=== PATIENT | female | born 1990 | race African-American/Black ===

== ENCOUNTER 2020-09-13 12:28 | Outpatient (CLI) | payer OTHER ==
[~2020-09-13] VITALS: Ht 170.2 cm; Wt 76.7 kg
[~2020-09-13 12:28] MED LIST: GLUCOPHAGE; LANTUS100 U/ML SQ; NEURONTIN300 MG/CAP PO; NOVOLOG 100U100 U/ML SQ; PERCOCET 5/321 UDTAB PO
[2020-09-13 12:59] VITALS: BP 112/82; PULSE 93
[2020-09-13 14:00] VITALS: BP 114/80; PULSE 89
--- NOTE | 2020-09-13 14:00 | NUR ---
Pt returned from procedure,report from RONEY Patel.
[2020-09-13 14:03] VITALS: BP 114/80; PULSE 90
[2020-09-13 14:15] VITALS: BP 115/65; PULSE 93
[2020-09-13 14:30] VITALS: BP 115/84; PULSE 93
[2020-09-13 14:54] VITALS: BP 121/83; PULSE 93
--- NOTE | 2020-09-13 15:10 | NUR ---
Discharge instructions given to pt.Pt verbalizes understanding.Pt escorted out by this nurse.
== END 2020-09-13 15:12 | disposition home or self-care (01) ==
LOC: COL.RAD 12:28
DX: Z45.42 Encounter for adjustment and management of neurostimulator (principal); M54.5 Low back pain
CPT/HCPCS: Q9965

== ENCOUNTER 2023-02-08 08:28 | Inpatient (IN) | payer MEDICAID ==
[2023-02-08] VITALS (24 sets, daily range): BP systolic 121–143; BP diastolic 80–96; PULSE 89–114; TEMP 98.1–98.5
[~2023-02-08] VITALS: Ht 172.8 cm; Wt 90.0 kg
--- NOTE | 2023-02-08 09:03 | NUR ---
0812 PATIENT HERE FROM HOME WITH COMPLAINTS OF HAVING A LARGE GUSH OF FLUID AT 0630 THIS AM. PATIENT PRESENTS WITH LARGE TOWEL BETWEEN HER LEGS. ASSISTED PATIETN TO BED AND LARGE AMOUNT OF CLEAR FLUID NOTED AT THIS TIME. PATIENT ALSO HAS A NEUROSTIMULATOR PLACED ON HER RIGHT HIP.
[2023-02-08] MEDS ORDERED: NATURAL IRON65 MG (09:08)
[2023-02-08] MEDS ORDERED: PRENATAL TABLET PO (09:09)
--- NOTE | 2023-02-08 09:09 | NUR ---
0830 EFM ON FHT 150 TACHYCARDIA, BABY VERY ACTIVE. CONTRACTIONS STARTING BUT IRREGULAR AND PALPATE MILD. DR BURGOS CALLED AND UPDATED BUT ALMOST TO HOSPITAL AND WILL ASSESS PATIENT WHEN GETS HERE. Jyothi HUBBARD TO ASSUME CARE OF PATIENT AT THIS TIME. MOTHER AND FRIEND AT BEDSIDE.
[2023-02-08 10:14] LABS: BASO # 0.1 K/mm3 (0.0-0.2); BASO % 0.3 % (0.0-2.0); EOS % 0.3 % (0.0-4.0); GRAN # 11.3 K/mm3 (1.4-6.5); GRAN % 76.2 % (42.2-75.2); LYMPH # 2.5 K/mm3 (1.2-3.4); LYMPH % 16.9 % (20.0-51.0); MEAN CELL VOLUME 71 fl (80.0-100.0); MEAN CORPUSCULAR HGB CONC 31 g/dl (33.0-37.0); MEAN PLATELET VOLUME 9.8 fl (7.4-10.4); MONO # 0.9 K/mm3 (0.1-0.6); MONO % 5.7 % (1.7-9.3); PLATELET COUNT 397 K/mm3 (130-400); REDCELL DISTRIBUTION WIDTH-CV 15.4 % (11.5-14.5)
[2023-02-08 10:16] LABS: HEMATOCRIT 30.7 % (37.0-47.0); HEMOGLOBIN 9.6 g/dl (12.5-16.0); MEAN CORPUSCULAR HEMOGLOBIN 22 pg (27-31)
[2023-02-08 10:21] LABS: CALCIUM 8.6 mg/dL (8.4-10.2); CREATININE, serum 0.59 mg/dL (0.57-1.11)
[2023-02-08 10:35] LABS: TRICYCLIC ANTIDEPRESS URINE NEGATIVE
--- NOTE | 2023-02-08 11:00 | NUR ---
1043 - Dr. Sumner to pt bedside to discuss pain options as epidural not an option with spinal stimulator. Pt teary, but understanding. SVE at 1050 /-[address] Sumner with forebag noted. Pt crying, states "can I just have a ". Pt states contraction pain is causing her discomfort and crying. Dr. Sumner encourages pt to discuss options with family before making decision. Pt up to bathroom at 2736
--- NOTE | 2023-02-08 15:50 | NUR ---
1108 - Dr. Sumner returns to bedside. Discusses continuing labor vs doing now. Pt elects to have . 1138 - Francis placed at bedside. Abdominal prep done. 1148 - Pt taken off monitors, taken to OR via bed per pt request.
[2023-02-08 17:23] LABS: HEMATOCRIT 25.6 % (37.0-47.0); HEMOGLOBIN 8.2 g/dl (12.5-16.0)
[2023-02-08 17:50] LABS: ALBUMIN 2.1 gm/dL (3.5-5.0); CALCIUM 8.3 mg/dL (8.4-10.2); CREATININE, serum 0.64 mg/dL (0.57-1.11); POTASSIUM 4.5 mmol/L (3.5-4.5); TOTAL PROTEIN 5.3 gm/dL (6.2-8.1)
--- NOTE | 2023-02-08 18:00 | NUR ---
DR. BURGOS GAVE A VERBAL PHONE READBACK ORDER TO PREVIOUS NURSE TO ASSESS PT'S BLOOD SUGAR LEVELS AND ADMINISTER INSULIN SUBQ Q6HRS. ORDERS WERE PLACED BY THE PROVIDER FOR SLIDING SCALE INSULIN Q1D, AND TO BEGIN AT 2100, INSTEAD OF Q6HR PER VERBAL ORDERS. DR. BURGOS NOTIFIED BY THIS RN AND REPORTED TO THE PHYSICIAN THE ORDER'S PLACED IN THE EMAR. DR. BURGOS GAVE A VERBAL PHONE READBACK ORDER TO CHANGE THE SLIDING SCALE INSULIN ORDER FROM Q1D TO Q6HR'S AND TO BEGIN TO ORDER AT 1900 THIS EVENING. ORDER CHANGED IN EMAR PER PROVIDER. DR. BURGOS WAS ALSO NOTIFIED THAT THE PT WAS RATING HER PAIN AT 8/10 IN ABDOMINAL AREA. PT WAS GIVEN PRN MORPHINE AND ROXICODONE AROUND 1930 AND PT IS REQUESTING MORE MORPHINE AT THIS TIME. PT WAS EDUCTAED THAT SHE COULD RECIEVE SCHEDULED MOTRIN AT 1830 FOR PAIN. PAIN REPORTED THAT MOTRIN "DOES NOT HELP" AND SHE WOULD LIKE MORE MORPHINE. DR. BURGOS GAVE A VERBAL ORDER TO INCREASE THE PT'S ROXICODONE DOSE FROM 5MG Q4HR PRN TO 10 MG Q4HR PRN. MEDICATION ORDER CHANGED IN EMAR PER PROVIDER. PT EDUCATED ON CHANGES IN MEDICATION DOSING AND UPDATED ON Q6HR BLOOD SUGAR ASSESSMENTS AND SLIDING SCALE INSULIN. PT VERBALIZED UNDERSTANDING AND QUESTIONS ANSWERED.
[2023-02-08 18:05] LABS: BILIRUBIN,TOTAL 0.3 mg/dL (0.2-1.2)
[2023-02-09] VITALS: BP 130/82; PULSE 100; TEMP 98.3
[2023-02-09 05:30] VITALS: BP 124/83; PULSE 92; TEMP 98.1
--- NOTE | 2023-02-09 06:30 | NUR ---
Ambulates in the hallway with baby and mother. Denies any needs at this time.
[2023-02-09 07:30] VITALS: BP 116/81; PULSE 93; TEMP 98
--- NOTE | 2023-02-09 09:30 | NUR ---
Oxycodone 10 mg given per request and as ordered.
--- NOTE | 2023-02-09 10:45 | NUR ---
Ibuprofen 800 mg given as ordered.
--- NOTE | 2023-02-09 11:00 | NUR ---
REPORT RECEIVED FROM J Luis MITCHELL RN AND NITHYA KELLY.
[2023-02-09 17:00] VITALS: BP 127/89; PULSE 93; TEMP 97.6
[2023-02-09 20:30] VITALS: BP 121/78; PULSE 102; TEMP 98.1
[2023-02-10 07:20] VITALS: BP 113/69; PULSE 101; TEMP 98.1
--- NOTE | 2023-02-10 09:21 | NUR ---
Initial visit; Physician with patient. Doctor Of Osteopathy left card offering congratulations and information regarding the availability of [facility] at [facility].
--- NOTE | 2023-02-10 14:59 | NUR ---
Test Rider met with patient to assess for needs. Patient's best friend is at bedside. Patient lives in [place] with her , father of baby, Saw Freeman (ph#[phone]). Patient's mother, Cady also lives in [place] and is supportive. Patient named baby, Arie. Patient advised this is her first baby and that she has all needed supplies at home including a bassinet and carseat. Patient is currently using formula but does plan to breastfeed. Patient obtained a pump through her insurance. Patient is established with [facility] and plans to contact them to update on patient's . Patient does not work outside of the home. SW noted in patient's care notes that she was referred to a therapist and started on Lexapro. SW asked about any mental health concerns and patient stated "no maam". SW did provide [facility] Resource Guide and encouraged her to access services if needed. SW did address history of marijuana use and patient stated she quit once she found out she was . Patient had a positive UDS for marijuana during (07/18/22). Patient was negative upon admission (02/08/23). Baby also had a negative UDS at time of . Cord blood pending. SW made report to [employer] due to positive during (Intake #[id number]). MARIZA updated Dr. Montero on the above.
== END 2023-02-10 14:40 | disposition home or self-care (01) | DRG 788 ==
LOC: OB 08:28 → LDR 08:28 → OB 14:45
PROVIDERS: Obstetrics & Gynecology; ADMIT Obstetrics & Gynecology
PROC: 10D00Z1 Extraction of Products of Conception, Low, Open Approach (ICD-10-PCS; principal; 2023-02-08)
DX: O24.420 Gestational diabetes mellitus in childbirth, diet controlled (principal); Z3A.39 39 weeks gestation of pregnancy; Z37.0 Single live birth; O75.89 Other specified complications of labor and delivery; O99.02 Anemia complicating childbirth; D64.9 Anemia, unspecified; O76 Abnormality in fetal heart rate and rhythm complicating labor and delivery; G89.29 Other chronic pain; O99.344 Other mental disorders complicating childbirth; F32.A Depression, unspecified; O99.892 Other specified diseases and conditions complicating childbirth; Z96.82 Presence of neurostimulator; M54.9 Dorsalgia, unspecified; M79.606 Pain in leg, unspecified; F41.9 Anxiety disorder, unspecified
CPT/HCPCS: J0330; J0456; J0665; J0690; J1100; J1815; J1885; J2175; J2210; J2270; J2405; J2590; J2704; J3010; J7050; J7120